=== PATIENT | male | born 1985 | race African-American/Black ===

== ENCOUNTER 2017-01-30 03:16 | Emergency (ER) | payer BC ==
[~2017-01-30] VITALS: Ht 188 cm; Wt 115.9 kg
[2017-01-30 03:23] VITALS: Ht 188 cm; Wt 115.9 kg
[2017-01-30] MEDS ORDERED: ALBU18HF INHALATION (04:18)
--- NOTE | 2017-01-30 05:41 | ERD ---
ER Documentation Chief Complaint Chief Complaint intermittent chest pain x 3 days, back pain HPI 31-year-old male complaining of intermittent chest pain 3-4 days. This morning , he woke up with pain in his right anterior chest, which concern him. Patient stated the pain is squeezing like, comes and goes. It usually lasts about 1 hour. The pain is worse with movement. At this time, the pain is 7 out of 10. Patient reports feeling short of breath at times. He had been coughing for the past 5 days. He uses a inhaler when he had short of breath. Denies short of breath at this time. Denies fever or chills. Denies injury. Denies increased stress. History of rheumatoid arthritis, anxiety. Denies history of asthma. ROS All systems reviewed and are negative except as per history of present illness. Medications Home Meds Active Scripts Albuterol Sulfate* (Ventolin HFA*) 18 Gm Hfa.aer.ad, 2 PUFF INHALATION Q4H, #1 INHALER Prov:JENN CORONEL BUILDING SUPERVISOR 01/30/17 Allergies Allergies: Coded Allergies: No Known Allergy (Unverified , 01/30/17) PMhx/Soc Medical and Surgical Hx: pt denies Surgical Hx History of Surgery: No Anesthesia Reaction: No Hx Neurological Disorder: No Hx Respiratory Disorders: No Hx Cardiac Disorders: No Hx Psychiatric Problems: No Hx Miscellaneous Medical Probl: Yes (RA) Hx Alcohol Use: Yes (SOCIALLY) Hx Substance Use: No Hx Tobacco Use: Yes Smoking Status: Current every day smoker Physical Exam Vitals Vital Signs Date Time Temp Pulse Resp B/P Pulse Ox O2 Delivery O2 Flow Rate FiO2 01/30/17 03:23 98.3 72 20 136/89 99 Physical Exam General: Well-developed, well-nourished, conscious and coherent, in no distress Skin: Warm and dry without rash, good texture and turgor Head: Normocephalic without evidence of trauma Eyes: Sclera and conjunctivae normal; pupils equal, round, and reactive to light; extraocular movements are intact Chest: Normal AP diameter. Good expansion without retractions. Nontender. Lungs are clear to auscultate bilaterally with good tidal volume, slight wheeze noted at the left lower lobe. Right anterior chest wall point tenderness on palpation. Heart: Regular rate and rhythm. No murmur, rub, or gallops heard Back: Tenderness at the right mid thoracic region. Extremities: Full range of motion. Good strength bilaterally. No clubbing, cyanosis, or edema. Peripheral pulses are intact. Sensation intact Neuro: Alert and oriented 4, GCS 15. Cranial nerves grossly intact. Motor and sensory exams nonfocal. Moves all extremities. Speech clear. Gait normal Procedures/MDM Well-appearing 31-year-old male presents the ED with intermittent right chest wall pain 3 days. EKG: Normal sinus rhythm rate 80 bpm, normal axis. No ST segment elevation or depression. No ectopic beats. No QT prolongation. No other EKG abnormalities. EKG read by Dr. Ackerman. Low suspicion for acute coronary syndrome, aortic dissection, pneumonia, pneumothorax, or PE. Patient has reproducible chest wall tenderness to palpation. Likely patient chest pain was from costochondritis. Patient is well to be discharged home for outpatient management. Patient is noted to have slight wheeze on the left lower lobe. Likely this is due to a viral bronchitis, or undiagnosed asthma. Patient is not in respiratory distress, his oxygen saturation is 99%. I doubt pneumonia. Patient appears well, stable for discharge and outpatient management. Medical decision making shared with patient and family. Education provided to patient and family. Patient and family expressed understanding of the plan. Patient refused ibuprofen prescription, states that he has naproxen at home. Medications on discharge: Ventolin. Follow-up: Primary care provider in 2-3 days or return to ED if worse. Disclaimer: Inadvertent spelling and grammatical errors are likely due to EHR/ dictation software use and do not reflect on the overall quality of patient care. Also, please note that the electronic time recorded on this note does not necessarily reflect the actual time of the patient encounter. Departure Diagnosis: Primary Impression: Costochondritis Condition: Stable Patient Instructions: Costochondritis Referrals: [facility] YOU HAVE RECEIVED A MEDICAL SCREENING EXAM AND THE RESULTS INDICATE THAT YOU DO NOT HAVE A CONDITION THAT REQUIRES URGENT TREATMENT IN THE EMERGENCY DEPARTMENT. FURTHER EVALUATION AND TREATMENT OF YOUR CONDITION CAN WAIT UNTIL YOU ARE SEEN IN YOUR DOCTORS OFFICE WITHIN THE NEXT 1-2 DAYS. IT IS YOUR RESPONSIBILITY TO MAKE AN APPOINTMENT FOR FOLOW-UP CARE. IF YOU HAVE A PRIMARY DOCTOR --you should call your primary doctor and schedule an appointment IF YOU DO NOT HAVE A PRIMARY DOCTOR YOU CAN CALL OUR PHYSICIAN REFERRAL HOTLINE AT IF YOU CAN NOT AFFORD TO SEE A PHYSICIAN YOU CAN CHOSE FROM THE FOLLOWING [facility] [address] [facility]. [facility] [phone] [id number] [facility]. [facility] [address] [facility]. [facility] [address] [facility]. [facility] [phone] [address] [facility]. [facility] [address] Additional Instructions: Call your primary care doctor TOMORROW for an appointment during the next 2-3 days.See the doctor sooner or return here if your condition worsens before your appointment time. JENN CORONEL NP Jan 30, 2017 05:41
== END 2017-01-30 04:24 | disposition home or self-care (01) ==
LOC: FTE 03:16
DX: M94.0 Chondrocostal junction syndrome [Tietze] (principal); F17.210 Nicotine dependence, cigarettes, uncomplicated
CPT/HCPCS: 93005; 99283